=== PATIENT | female | born 1945 ===

== ENCOUNTER 2018-09-28 11:54 | Day surgery (SDC) | payer MEDICARE ==
[~2018-09-28] VITALS: Wt 77.6 kg
[~2018-09-28 11:54] MED LIST: ACET500 PO; ALBU2.5V5 NEB; ARNUITY ELLIPT50 MCG INH; BUDE6HFA INH; Buspirone HCl7.5 MG PO; Celexa40 MG PO; DOLOMITE; Daily Multiple1 EACH PO; LISI5 PO; MELATONIN 10 M1 EACH PO; PROBIOTIC PO; VITACEL PO; VITAMIN D35000 UNIT PO; Zantac150 MG PO; [UNRECOGNIZED DRUG - OTHER] PO
--- NOTE | 2018-09-28 13:08 | NUR ---
History, Chart, Medications and Allergies reviewed before start of procedure. Patient States Post-Procedure ride home has been arranged.
--- NOTE | 2018-09-28 13:35 | NUR ---
09/28/18 1335 Tom Santizo PATIENT DETERMINED TO BE ASA APPROPRIATE FOR PROPOFOL SEDATION PRIOR TO START OF PROCEDURE BY . 3-LEAD EKG REVIEWED WITH PHYSICIAN PRIOR TO START OF PROCEDURE.PATIENT CONFIRMS NPO STATUS AND AGREES WITH SCHEDULED PROCEDURE.History, Chart, Medications and Allergies reviewed before start of procedure.MONITOR INTACT WITH CONTINUOUS PULSE OXIMETRY AND INTERMITTENT BP.O2 VIA N/C INTACT THROUGHOUT SEDATION/PROCEDURE.Bite Block Placed`
--- NOTE | 2018-09-28 14:28 | NUR ---
Patient up to Ambulate independently. Gait steady. Patient States Post-Procedure ride home has been arranged. Discharge instructions reviewed with patient. Patient verbalizes understanding. Copy given to patient to take home. Discharged via wheelchair to private car for ride home. BRENNEN RÍOS RETURNED TO PATIENT INCLUYIDING BOTH DENTURES.
== END 2018-09-28 22:46 | disposition home or self-care (01) ==
LOC: ORSCMMR 11:54 → ORD 13:15 → ORSCMMR 22:46
PROVIDERS: Internal Medicine Gastroenterology
PROC: 0DB68ZX Excision of Stomach, Via Natural or Artificial Opening Endoscopic, Diagnostic (ICD-10-PCS; principal; 2018-09-28 13:15)
PROC: 0DB98ZX Excision of Duodenum, Via Natural or Artificial Opening Endoscopic, Diagnostic (ICD-10-PCS; principal; 2018-09-28 13:15)
PROC: 0DB58ZX Excision of Esophagus, Via Natural or Artificial Opening Endoscopic, Diagnostic (ICD-10-PCS; principal; 2018-09-28 13:15)
DX: R19.7 Diarrhea, unspecified (principal); K29.80 Duodenitis without bleeding; K29.70 Gastritis, unspecified, without bleeding; K44.9 Diaphragmatic hernia without obstruction or gangrene; R10.13 Epigastric pain; R11.0 Nausea; I10 Essential (primary) hypertension; K21.0 Gastro-esophageal reflux disease with esophagitis; Z87.11 Personal history of peptic ulcer disease; E66.9 Obesity, unspecified; Z87.891 Personal history of nicotine dependence; Z68.31 Body mass index [BMI] 31.0-31.9, adult; Z79.899 Other long term (current) drug therapy
CPT/HCPCS: 88305; 88342; J2704; J7120